=== PATIENT | female | born 1990 | race African-American/Black ===

== ENCOUNTER 2018-08-21 09:47 | Emergency (ER) | payer SELFPAY ==
[2018-08-21 09:55] VITALS: BMI 36.9
--- NOTE | 2018-08-21 10:17 | PDOC ---
History of Present Illness <Tati Chopra - Last Filed: 08/21/18 12:50> - General History Source: Patient Exam Limitations: No Limitations - History of Present Illness Initial Comments: 08/21/18 10:15 27 yo F [id number] 7 wks comes in c/o vaginal spotting since yesterday, c/ o light pink-brown spotting, no other conplaints today, no abdominal pain no bleeding/clots, no back pain, no fever/chills, no NVD, no burning/pain on urination. Pt found out that she was on August 08, took a home [facility]. She has not had a documented IUP, has not had care yet due to insurance issues. NO other complaints today. LMP June 28. (+)desired . 08/21/18 10:45 <SukumarTaylor - Last Filed: 08/21/18 15:44> - General Chief Complaint: Vaginal Bleeding Stated Complaint: CHECK UP / Time Seen by Provider: 08/21/18 10:06 Past History <Tati Chopra - Last Filed: 08/21/18 12:50> - Past Medical History Anemia: No Asthma: No Cancer: No Cardiac Disorders: No CVA: No COPD: No CHF: No Dementia: No Diabetes: No GI Disorders: No Disorders: No HTN: No Hypercholesterolemia: No Liver Disease: No Seizures: No Thyroid Disease: No - Suicide/Smoking/Psychosocial Hx Smoking History: Never smoked Have you smoked in the past 12 months: No Hx Alcohol Use: No Drug/Substance Use Hx: No Substance Use Type: None Hx Substance Use Treatment: No <SukumarTaylor - Last Filed: 08/21/18 15:44> - Past Medical History Allergies/Adverse Reactions: Allergies Allergy/AdvReac Type Severity Reaction Status Date / Time No Known Allergies Allergy Verified 08/21/18 09:51 Home Medications: Ambulatory Orders Cephalexin [Keflex] 500 mg PO TID 7 Days #21 capsule 08/21/18 105/Iron/Folic AC/Dha [Prena1 True Combo Pack] 1 each PO DAILY 30 Days #30 combo..pkg 08/21/18 Review of Systems - Review of Systems Able to Perform ROS?: Yes Constitutional: No: Chills, Fever, Malaise, Night Sweats HEENTM: No: Eye Pain, Recent change in vision, Throat Pain Respiratory: No: Cough, Shortness of Breath Cardiac (ROS): No: Chest Pain, Palpitations, Chest Tightness ABD/GI: No: Diarrhea, Nausea, Vomiting, Abdominal cramping : No: Dysuria, Hematuria Musculoskeletal: No: Back Pain Integumentary: No: Rash Neurological: No: Headache, Numbness, Dizziness Psychiatric: No: Change in Appetite Endocrine: No: Unexplained Weight Loss <Taylor Patino - Last Filed: 08/21/18 15:44> *Physical Exam - Vital Signs Last Vital Signs Temp Pulse Resp BP Pulse Ox 98.2 F 70 18 104/59 L 100 08/21/18 09:51 08/21/18 09:51 08/21/18 09:51 08/21/18 09:51 08/21/18 09:51 <Tati Chopra - Last Filed: 08/21/18 12:50> - Vital Signs Last Vital Signs Temp Pulse Resp BP Pulse Ox 98.2 F 70 18 104/59 L 100 08/21/18 09:51 08/21/18 09:51 08/21/18 09:51 08/21/18 09:51 08/21/18 09:51 - Physical Exam General Appearance: Yes: Nourished. No: Apparent Distress HEENT: positive: CAROLYN, Normal ENT Inspection, Normal Voice. negative: Pale Conjunctivae, Scleral Icterus (R), Scleral Icterus (L) Neck: positive: Supple. negative: Decreased range of motion, Tender midline Respiratory/Chest: positive: Lungs Clear, Normal Breath Sounds. negative: Respiratory Distress, Accessory Muscle Use Cardiovascular: positive: Regular Rhythm, Regular Rate Female Pelvic Exam: positive: cervical os closed, normal adnexa, normal size ovaries, vaginal bleeding (scant pinkish-clear discharge, no active bleeding). negative: CMT, lesions, adnexal tenderness Gastrointestinal/Abdominal: positive: Normal Bowel Sounds, Soft. negative: Tender Musculoskeletal: positive: Normal Inspection. negative: CVA Tenderness, Decreased Range of Motion Extremity: positive: Normal Capillary Refill, Normal Inspection, Normal Range of Motion. negative: Tender, Pedal Edema Integumentary: positive: Normal Color, Dry. negative: Jaundice, Rash Neurologic: positive: Fully Oriented, Alert, Normal Mood/Affect <Taylor Patino - Last Filed: 08/21/18 15:44> ED Treatment Course - LABORATORY CBC & Chemistry Diagram: 08/21/18 10:20 08/21/18 10:20 - ADDITIONAL ORDERS Additional order review: Laboratory Results 08/21/18 08/21/18 08/21/18 11:00 10:20 10:20 PT with INR INR Sodium 136 Potassium 4.3 Chloride 103 Carbon Dioxide 27 Anion Gap 6 L BUN 11 Creatinine 0.6 Est GFR (CKD-EPI)AfAm 142.76 Est GFR (CKD-EPI)NonAf 123.17 Random Glucose 85 Calcium 9.9 Total Bilirubin 0.4 AST 16 ALT 16 Alkaline Phosphatase 81 Total Protein 7.7 Albumin 4.0 Beta HCG, Quant 1947.0 Urine Color Yellow Urine Appearance Cloudy Urine pH 7.0 Ur Specific [place] 1.012 Urine Protein Negative Urine Glucose (UA) Negative Urine Ketones Negative Urine Blood 3+ H Urine Nitrite Negative Urine Bilirubin Negative Urine Urobilinogen 0.2 Ur Leukocyte Esterase Negative Blood Type Cancelled Antibody Screen Cancelled 08/21/18 10:20 PT with INR 12.60 INR 1.07 Sodium Potassium Chloride Carbon Dioxide Anion Gap BUN Creatinine Est GFR (CKD-EPI)AfAm Est GFR (CKD-EPI)NonAf Random Glucose Calcium Total Bilirubin AST ALT Alkaline Phosphatase Total Protein Albumin Beta HCG, Quant Urine Color Urine Appearance Urine pH Ur Specific [place] Urine Protein Urine Glucose (UA) Urine Ketones Urine Blood Urine Nitrite Urine Bilirubin Urine Urobilinogen Ur Leukocyte Esterase Blood Type Antibody Screen 08/21/18 10:20 RBC 4.49 MCV 81.0 MCHC 33.1 RDW 13.5 MPV 7.8 Neutrophils % 62.5 Lymphocytes % 24.6 Monocytes % 10.7 H Eosinophils % 1.4 Basophils % 0.8 <Tati Chopra - Last Filed: 08/21/18 12:50> - LABORATORY CBC & Chemistry Diagram: 08/21/18 10:20 08/21/18 10:20 <Taylor Patino - Last Filed: 08/21/18 15:44> Medical Decision Making - Medical Decision Making The patient was seen and evaluated in conjunction with midlevel provider under my direct supervision, ancillary studies were reviewed. I agree with the plan as outlined KAYLIE Patino. HPI, workup/dispo as outlined. VS reviewed, wnl. no documented IUP, [facility] 08[facility]. +Upreg taking prenatals scant vag spotting since last night. no AP. bedside sono attempted, no definitive IUP, so TVUS indicated. live IUP at 6 weeks seen, CL cyst, normal ovarian flow. doubt ectopic with TVUS findings txs with rh pos status, no rhogam labs and lytes wnl. beta hcg ~1949 UA WBC 10, some bacteria, treat as UTI with keflex in setting of . OB follow up as outpatient, prenatals, establishment of care. 08/21/18 12:50 <Tati Chopra - Last Filed: 08/21/18 12:50> - Medical Decision Making 08/21/18 10:41 27 yo F 7wks p/w spotting without abdominal pain. No documented IUP in this . Likely threatened . Labs, sono and urine ordered. CUltures sent. 08/21/18 12:28 Official sono pending, then likely discharge with OB outpatient follow up 08/21/18 12:46 Sono shows single live IUP 6w4d. Pending type and screen 08/21/18 15:42 late addendum rh positive, pt discharged with OB follow up, she will call to make an appointment. (+)bacteriuria in UA, will give keflex. Pt is active, non toxic appearing in NAD, Return for worsening/concerning symptoms. Pt verbalizes understanding and agrees with plan <Taylor Patino - Last Filed: 08/21/18 15:44> *DC/Admit/Observation/Transfer <Tati Chopra - Last Filed: 08/21/18 12:50> <Taylor Patino - Last Filed: 08/21/18 15:44> Diagnosis at time of Disposition: Threatened , Bacteriuria - Discharge Dispostion Disposition: HOME Condition at time of disposition: Stable - Prescriptions Prescriptions: Cephalexin [Keflex] 500 mg PO TID 7 Days #21 capsule 105/Iron/Folic AC/Dha [Prena1 True Combo Pack] 1 each PO DAILY 30 Days #30 combo..pkg - Referrals Referrals: Joaquín Prajapati MD [Primary Care Provider] - - Patient Instructions Printed Discharge Instructions: DI for Threatened Additional Instructions: Your ultrasound showed a live in the uterus at 6 weeks 4 days. Your urine shows some bacteria, so please take the prescribed antibiotics. Make an appointment with your OBGYN as soon as possible. Take vitamins daily. Return for worsening/concerning symptoms. - Post Discharge Activity
[2018-08-21 10:38] LABS: BASO % 0.8 % (0-2.0); EOS % 1.4 % (0-4.5); HEMATOCRIT 36.4 % (32.4-45.2); HEMOGLOBIN 12.1 GM/dL (10.7-15.3); LYMPH % 24.6 % (8-40); MCH 26.8 pg (25.7-33.7); MCHC 33.1 g/dl (32.0-36.0); MEAN PLT VOLUME 7.8 fl (7.5-11.1); MONO % 10.7 % (3.8-10.2); NEUT % 62.5 % (42.8-82.8); PLATELET COUNT 388 K/MM3 (134-434); RBC 4.49 M/mm3 (3.60-5.2); RDW 13.5 % (11.6-15.6)
[2018-08-21 11:21] LABS: BILIRUBIN,TOTAL 0.4 mg/dL (0.2-1); CALCIUM 9.9 mg/dL (8.5-10.1); CREATININE 0.6 mg/dL (0.55-1.3); INR 1.07 (0.83-1.09); POTASSIUM 4.3 mmol/L (3.5-5.1); PROTHROMBIN TIME (PATIENT) 12.6 SEC (9.7-13.0); TOT PROT 7.7 g/dl (6.4-8.2)
[2018-08-21 11:38] LABS: URINE APPEARANCE CLOUDY; URINE BACTERIA 433.3 /hpf (NEGATIVE); URINE BILIRUBIN NEGATIVE (NEGATIVE); URINE CASTS 3 /lpf (0-8); URINE COLOR YELLOW; URINE GLUCOSE (UA) NEGATIVE (NEGATIVE); URINE KETONE NEGATIVE (NEGATIVE); URINE LEUK ESTERASE NEGATIVE (NEGATIVE); URINE NITRITE NEGATIVE (NEGATIVE); URINE PROTEIN NEGATIVE (NEGATIVE); URINE RBC 1 /hpf (0-4); URINE UROBILINOGEN 0.2 mg/dL (0.2-1.0)
[2018-08-21 12:09] LABS: URINE WBC 10.4 /hpf (0-5)
[2018-08-21 14:07] VITALS: BP 110/70; PULSE 64; TEMP 97.8
== END 2018-08-21 14:18 | disposition home or self-care (01) ==
LOC: JER 09:47
DX: O26.891 Other specified pregnancy related conditions, first trimester (principal); Z3A.00 Weeks of gestation of pregnancy not specified; O20.0 Threatened abortion; R82.71 Bacteriuria
CPT/HCPCS: 36415; 76817-TC; 80053; 81003; 84702; 85025; 85610; 86850; 86900; 86901; 87086; 87491; 87591; 87661; 99282-25

== ENCOUNTER 2018-08-22 19:18 | Emergency (ER) | payer OTHER ==
[2018-08-22 19:29] VITALS: BP 110/67; PULSE 98; TEMP 98; BMI 36.9
--- NOTE | 2018-08-22 19:34 | PDOC ---
History of Present Illness - General Chief Complaint: Vaginal Bleeding Stated Complaint: POSSIBLE MISCARRIAGE(6 WEEKS) Time Seen by Provider: 08/22/18 19:31 History Source: Patient Exam Limitations: No Limitations - History of Present Illness Travel History: No Timing/Duration: reports: gone now (pt passed some bloody tissue while urinating) Aggravating Factors: improves with: Voiding Past History - Past Medical History Allergies/Adverse Reactions: Allergies Allergy/AdvReac Type Severity Reaction Status Date / Time No Known Allergies Allergy Verified 08/21/18 09:51 Home Medications: Ambulatory Orders Cephalexin [Keflex] 500 mg PO TID 7 Days #21 capsule 08/21/18 105/Iron/Folic AC/Dha [Prena1 True Combo Pack] 1 each PO DAILY 30 Days #30 combo..pkg 08/21/18 Anemia: No Asthma: No Cancer: No Cardiac Disorders: No CVA: No COPD: No CHF: No Dementia: No Diabetes: No GI Disorders: No Disorders: No HTN: No Hypercholesterolemia: No Liver Disease: No Seizures: No Thyroid Disease: No - Suicide/Smoking/Psychosocial Hx Smoking History: Never smoked Have you smoked in the past 12 months: No Information on smoking cessation initiated: No Hx Alcohol Use: No Drug/Substance Use Hx: No Substance Use Type: None Hx Substance Use Treatment: No *Physical Exam - Vital Signs Last Vital Signs Temp Pulse Resp BP Pulse Ox 98 F 98 H 20 110/67 100 08/22/18 19:24 08/22/18 19:24 08/22/18 19:24 08/22/18 19:24 08/22/18 19:24 - Physical Exam General Appearance: Yes: Nourished, Appropriately Dressed HEENT: positive: Normal Voice Neck: positive: Supple Respiratory/Chest: positive: Lungs Clear Cardiovascular: positive: Regular Rhythm, Regular Rate Gastrointestinal/Abdominal: positive: Soft Musculoskeletal: positive: Normal Inspection Extremity: positive: Normal Range of Motion Integumentary: positive: Normal Color, Warm Neurologic: positive: Fully Oriented, Alert, Motor Strength 5/5 Medical Decision Making - Medical Decision Making 08/22/18 20:02 this pt was seen here yesterday and had a pelvic US that showed SL IUP 6 weeks 4 days with bpm of 124 her bhcg was 1949 08/22/18 20:55 TODAY her trans vaginal ultrasound DOES NOT show any cardiac activity ,there is a crown rump length of 5.7mm,corresponding to 6 weeks 2 days. yolk sac is mildly irregular in shape,gestational sac fluid appears low.rt ovary appears normal,left ovary not seen, no significant free fluid -concern for demise 08/22/18 21:00 blood type done yesterday and was O POSITIVE 08/22/18 22:23 bhcg only 1830 today imp demise. 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
== END 2018-08-22 21:40 | disposition home or self-care (01) ==
LOC: JER 19:18
DX: O20.0 Threatened abortion (principal); Z3A.00 Weeks of gestation of pregnancy not specified; O26.891 Other specified pregnancy related conditions, first trimester
CPT/HCPCS: 36415; 76817-TC; 84702; 99282-25

== ENCOUNTER 2022-03-22 09:08 | Emergency (ER) | payer OTHER ==
[2022-03-22 09:41] VITALS: BP 105/59; PULSE 63; RESP 20; TEMP 98.3; BMI 41.5
[2022-03-22 10:36] LABS: URINE APPEARANCE CLEAR; URINE BILIRUBIN NEGATIVE (NEGATIVE); URINE COLOR YELLOW; URINE GLUCOSE (UA) NEGATIVE (NEGATIVE); URINE KETONE NEGATIVE (NEGATIVE); URINE LEUK ESTERASE NEGATIVE (NEGATIVE); URINE NITRITE NEGATIVE (NEGATIVE); URINE PROTEIN NEGATIVE (NEGATIVE); URINE UROBILINOGEN 0.2 mg/dL (0.2-1.0)
[2022-03-22 10:56] LABS: HCG,QUALITATIVE URINE Positive
[2022-03-22 12:02] LABS: URINE RBC FEW /uL (0-23.9)
[2022-03-22 12:03] LABS: URINE BACTERIA FEW /uL (0-1359)
[2022-03-22 13:11] LABS: BASO % 0.9 % (0-2.0); EOS % 1.1 % (0-4.5); HEMATOCRIT 36.8 % (32.4-45.2); HEMOGLOBIN 12.2 GM/dL (10.7-15.3); LYMPH % 19.2 % (8-40); MCH 26.4 pg (25.7-33.7); MCHC 33.1 g/dl (32.0-36.0); MEAN CELL VOLUME 79.7 fl (80-96); MONO % 8.9 % (3.8-10.2); NEUT % 69.9 % (42.8-82.8); PLATELET COUNT 397 10^3/uL (134-434); RBC 4.62 M/mm3 (3.60-5.2); RDW 13.5 % (11.6-15.6); WHITE BLOOD COUNT 6.4 K/mm3 (4.0-10.0)
[2022-03-22 13:32] LABS: BLOOD UREA NITROGEN 8.4 mg/dL (7-18)
[2022-03-22 13:35] LABS: CREATININE 0.7 mg/dL (0.55-1.3)
== END 2022-03-22 15:24 | disposition home or self-care (01) ==
LOC: JERFT 09:08 → JER 09:08 → JERFT 15:24
DX: O02.1 Missed abortion (principal)
CPT/HCPCS: 36415; 76817-TC; 80048; 81003; 84702; 84703; 85025; 86850; 86900; 86901; 87086; 99284-25

== ENCOUNTER 2022-10-28 10:32 | Emergency (ER) | payer OTHER ==
[2022-10-28 10:46] VITALS: BP 138/96; PULSE 72; RESP 20; TEMP 98.6; BMI 40.0
[2022-10-28] MEDS ORDERED: ACETAMINOPHEN 500 MG TABLET (FP) ONE (13:09)
[2022-10-28 13:28] LABS: URINE APPEARANCE CLEAR; URINE BILIRUBIN NEGATIVE (NEGATIVE); URINE COLOR YELLOW; URINE GLUCOSE (UA) NEGATIVE (NEGATIVE); URINE KETONE NEGATIVE (NEGATIVE); URINE LEUK ESTERASE NEGATIVE (NEGATIVE); URINE NITRITE NEGATIVE (NEGATIVE); URINE PROTEIN NEGATIVE (NEGATIVE); URINE UROBILINOGEN 0.2 mg/dL (0.2-1.0)
[2022-10-28 13:40] LABS: HCG,QUALITATIVE URINE NEGATIVE
[2022-10-28] MEDS ORDERED: FLUCONAZOLE 50 MG TABLET PO ONE (15:40)
[2022-10-28] MEDS ORDERED: FLUCONAZOLE 150 MG TABLET PO ONE (16:05)
== END 2022-10-28 16:10 | disposition home or self-care (01) ==
LOC: JERFT 10:32
DX: R10.2 Pelvic and perineal pain (principal)
CPT/HCPCS: 76830-TC; 81003; 84703; 87086; 99284-25

== ENCOUNTER 2024-01-04 15:19 | Emergency (ER) | payer OTHER ==
[2024-01-04 15:36] VITALS: BP 112/73; PULSE 88; RESP 18; TEMP 98.8; BMI 34.9
[2024-01-04] MEDS: LEVONORGESTREL 1.5 MG TABLET (PLAN B ONE-STEP) PO (18:18)
== END 2024-01-04 18:43 | disposition home or self-care (01) ==
LOC: JER 15:19
DX: T76.21XA Adult sexual abuse, suspected, initial encounter (principal)
CPT/HCPCS: 99285-25